=== PATIENT | male | born 1990 | race Two or more races ===

== ENCOUNTER 2018-10-18 08:47 | Emergency (ER) | payer MEDICAID, OTHER, SELFPAY ==
[~2018-10-18] VITALS: Ht 180.3 cm; Wt 115.0 kg
[2018-10-18] MEDS ORDERED: IBUPROFEN 200 MG TABLET PO ONE (09:30)
[2018-10-18 09:59] LABS: RAPID INFLUENZA A Negative (Negative); RAPID INFLUENZA B Negative (Negative)
[2018-10-18] MEDS ORDERED: IBUPROFEN 200 MG TABLET ONE (10:12)
[2018-10-18 10:19] VITALS: BP 128/62
== END 2018-10-18 10:37 | disposition home or self-care (01) ==
LOC: ED 10:31
DX: J02.8 Acute pharyngitis due to other specified organisms (principal); B34.9 Viral infection, unspecified; F12.10 Cannabis abuse, uncomplicated
CPT/HCPCS: 71046; 87400; 93005; 99284

== ENCOUNTER 2019-09-06 09:00 | Emergency (ER) | payer OTHER ==
[~2019-09-06] VITALS: Ht 180.3 cm; Wt 118.0 kg
[2019-09-06 09:13] VITALS: BP 147/84
[2019-09-06] MEDS ORDERED: ONDANSETRON ODT 8 MG ONE (09:26)
[2019-09-06] MEDS ORDERED: ONDANSETRON ODT 8 MG PO ONE (09:30)
--- NOTE | 2019-09-06 09:34 | NUR ---
PT HAS CO OF NAUSEA AND ABDOMINAL PAIN. FREQUENCY IN URINATION. PT NOT IN DISTRESS. RESP EVEN AND UNLABORED. FAMILY AT BEDSIDE
[2019-09-06 09:57] LABS: BASOPHILS # (AUTO) 0.02 x10^3/uL (0-0.1); BASOPHILS % (AUTO) 0 % (0-1); EOSINOPHILS # (AUTO) 0.09 x10^3/uL (0-0.4); EOSINOPHILS % (AUTO) 1 % (1-7); LYMPHOCYTES # (AUTO) 1.81 x10^3/uL (1-3.4); LYMPHOCYTES % (AUTO) 24 % (22-44); MD NO; MEAN CORPUSCULAR HEMOGLOBIN 29.7 pg (27.5-34.5); MEAN CORPUSCULAR HGB CONC 32.9 g/dL (33.2-36.2); MEAN CORPUSCULAR VOLUME 90.3 fL (81-97); MEAN PLATELET VOLUME 7.9 fL (7.4-10.4); MONOCYTES # (AUTO) 0.61 x10^3/uL (0.2-0.8); MONOCYTES % (AUTO) 8 % (2-9); NEUTROPHILS # (AUTO) 4.97 x10^3/uL (1.8-6.8); NEUTROPHILS % (AUTO) 66 % (42-75); PLATELET COUNT 279 x10^3/uL (130-400); RED BLOOD COUNT 5.05 x10^6/uL (4.38-5.82)
[2019-09-06 10:05] LABS: MICROSCOPIC NOT IND
[2019-09-06 10:07] LABS: ALBUMIN 3.8 g/dL (3.4-5.0); ANION GAP 2 mmol/L (5-15); CALCIUM 8.6 mg/dL (8.5-10.1); CHLORIDE 111 mmol/L (98-107)
[2019-09-06 10:09] LABS: CULTURE INDICATED? NO
--- NOTE | 2019-09-06 10:37 | NUR ---
Patient/Caregiver given discharge instructions and they have confirmed that they understand the instructions. Patient ambulatory with steady gait.
== END 2019-09-06 10:44 | disposition home or self-care (01) ==
LOC: ED 10:28
DX: R10.32 Left lower quadrant pain (principal)
CPT/HCPCS: 36415; 74176; 80048; 81003; 82040; 85025; 99284; Q0162